=== PATIENT | male | born 1975 | race American Indian/Alaskan Native ===

== ENCOUNTER 2017-04-27 08:09 | Emergency (ER) | payer MEDICAID ==
[2017-04-27 08:29] VITALS: O2SAT 98
--- NOTE | 2017-04-27 09:39 | ED PDOC ---
HPI: Dental Pain/Injury Time Seen by Provider: 04/27/17 08:47 Chief Complaint (Nursing): Dental Pain History Per: Patient History/Exam Limitations: no limitations Onset/Duration Of Symptoms: Gradual (today) Current Symptoms Are (Timing): Still Present Severity: Mild Quality: Dull Additional History Per: Patient Additional Complaint(s): patient stated tooth ache to upper left side of the face since last nite, also noted left face is swollen.speech is clear. no f/c/n/v Past Medical History Reviewed: Historical Data, Nursing Documentation, Vital Signs Vital Signs: Last Vital Signs Temp 98.4 F 04/27/17 08:28 Pulse 73 04/27/17 08:28 Resp 20 04/27/17 08:28 BP 125/61 04/27/17 08:28 Pulse Ox 98 04/27/17 08:28 - Medical History PMH: No Chronic Diseases - Family History Family History: States: Unknown Family Hx - Living Arrangements Living Arrangements: With Family - Social History Current smoker - smoking cessation education provided: No - Home Medications Home Medications: Ambulatory Orders Medication Instructions Recorded Clindamycin [Cleocin] 1 tab PO QID #20 cap 12/29/15 Clindamycin [Cleocin] 300 mg PO QID 10 Days 04/27/17 - Allergies Allergies/Adverse Reactions: Allergies Allergy/AdvReac Type Severity Reaction Status Date / Time Penicillins Allergy RASH Verified 12/29/15 03:06 Review of Systems ROS Statement: Except As Marked, All Systems Reviewed And Found Negative Constitutional: Negative for: Fever, Chills ENT: Positive for: Mouth Swelling. Negative for: Throat Pain, Throat Swelling Cardiovascular: Negative for: Chest Pain, Palpitations Respiratory: Negative for: Cough, Shortness of Breath Gastrointestinal: Negative for: Nausea, Vomiting, Abdominal Pain Musculoskeletal: Negative for: Neck Pain Neurological: Negative for: Weakness, Numbness Physical Exam - Reviewed Nursing Documentation Reviewed: Yes Vital Signs Reviewed: Yes - Physical Exam Appears: Positive for: Well, No Acute Distress Head Exam: Positive for: ATRAUMATIC, NORMAL INSPECTION, NORMOCEPHALIC Eye Exam: Positive for: Normal appearance, EOMI, PERRL ENT: Positive for: Pharynx Is (clear,mmm), TM Is/Are (nml bl), Other (mild left maxillary facial swelling left 3rd molar noted with carries no abscess). Negative for: Sinus Pain/Drainage, Pharyngeal Erythema, Tonsillar Exudate, Tonsillar Swelling Neck: Positive for: Normal, Painless ROM, Supple. Negative for: Decreased ROM, Limited ROM, Trachea Midline Cardiovascular/Chest: Positive for: Regular Rate, Rhythm, Chest Non Tender. Negative for: Edema, Gallop Respiratory: Positive for: Normal Breath Sounds. Negative for: Decreased Breath Sounds, Accessory Muscle Use, Crackles, Rales, Rhonchi, Stridor, Wheezing Neurologic/Psych: Positive for: Alert, meat specialist II-XII, Oriented, Mood/Affect (calm) , Gait (steady). Negative for: Motor/Sensory Deficits, Aphasia, Facial Droop - ECG O2 Sat by Pulse Oximetry: 98 Pulse Ox Interpretation: Normal - Progress ED Course And Treament: advise antibiotics and close f/u with pts dentist. pt agree's with plan and leaves ambulatory and in good spirits. Re-evaluation Time: 09:47 Condition: Improved Disposition - Clinical Impression Clinical Impression: Dental caries - Patient ED Disposition Is Patient to be Admitted: No Counseled Patient/Family Regarding: Studies Performed, Diagnosis, Need For Followup, Rx Given - Disposition Referrals: [facility] [Outside] Disposition: Routine/Home Disposition Time: 09:35 Condition: GOOD Prescriptions: Clindamycin [Cleocin] 300 mg PO QID 10 Days Instructions: Dental Caries (ED)
[2017-04-27 09:52] VITALS: BP 128/78; PULSE 78; RESP 19; TEMP 97.5
== END 2017-04-27 09:52 | disposition home or self-care (01) ==
LOC: H.ER 08:09
DX: K02.9 Dental caries, unspecified (principal); Z88.0 Allergy status to penicillin

== ENCOUNTER 2017-08-25 23:55 | Emergency (ER) | payer MEDICAID, OTHER ==
[2017-08-26 00:09] VITALS: BP 134/80; PULSE 100; RESP 16; TEMP 99; O2SAT 97
[2017-08-26] MEDS ORDERED: Lidocaine 2% w Epi 1:100,000 Inj IJ ONE ×2 (01:44→02:02)
[2017-08-26] MEDS ORDERED: Fluorescein 1 mg Ophthalmic Strip ONE (02:38)
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
== END 2017-08-26 04:10 | disposition home or self-care (01) ==
LOC: H.ER 23:55
DX: S00.03XA Contusion of scalp, initial encounter (principal); S01.81XA Laceration without foreign body of other part of head, initial encounter; H11.32 Conjunctival hemorrhage, left eye; S02.32XA Fracture of orbital floor, left side, initial encounter for closed fracture; W10.9XXA Fall (on) (from) unspecified stairs and steps, initial encounter; Y92.89 Other specified places as the place of occurrence of the external cause; K04.7 Periapical abscess without sinus; Z88.0 Allergy status to penicillin; M50.20 Other cervical disc displacement, unspecified cervical region

== ENCOUNTER 2017-09-01 18:50 | Emergency (ER) | payer OTHER ==
[2017-09-01 18:57] VITALS: BP 127/72; PULSE 81; RESP 18; TEMP 98; O2SAT 97
--- NOTE | 2017-09-01 19:24 | ED PDOC ---
HPI: Wound Care - HPI Time Seen by Provider: 09/01/17 19:01 Chief Complaint (Nursing): Suture/Staple Removal Chief Complaint (Provider): Suture removal, abscess on forehead History Per: Patient Exam Limitations: no limitations Additional Complaint(s): Pt had sutures placed 1 week ago in left lateral eyebrow. Pt states he also has swelling on forehead which he states is getting larger and tender. Pt denies fever/chills. Past Medical History Reviewed: Historical Data, Nursing Documentation, Vital Signs Vital Signs: Last Vital Signs Temp 98 F 09/01/17 18:53 Pulse 81 09/01/17 18:53 Resp 18 09/01/17 18:53 BP 127/72 09/01/17 18:53 Pulse Ox 97 09/01/17 18:53 - Medical History PMH: No Chronic Diseases - Surgical History Surgical History: No Surg Hx - Family History Family History: States: Unknown Family Hx - Living Arrangements Living Arrangements: With Family - Social History Current smoker - smoking cessation education provided: No - Home Medications Home Medications: Ambulatory Orders Medication Instructions Recorded Clindamycin [Cleocin] 1 tab PO QID #20 cap 12/29/15 Clindamycin [Cleocin] 300 mg PO QID 10 Days cap 04/27/17 Clindamycin [Cleocin] 300 mg PO Q6 #28 cap 08/26/17 - Allergies Allergies/Adverse Reactions: Allergies Allergy/AdvReac Type Severity Reaction Status Date / Time Penicillins Allergy RASH Verified 12/29/15 03:06 Review of Systems ROS Statement: Except As Marked, All Systems Reviewed And Found Negative Constitutional: Negative for: Fever, Chills Skin: Positive for: Other (Swelling, abscess; suture removal) Physical Exam - Reviewed Nursing Documentation Reviewed: Yes Vital Signs Reviewed: Yes - Physical Exam Appears: Positive for: Well, Non-toxic, No Acute Distress Head Exam: Positive for: ATRAUMATIC, NORMAL INSPECTION, NORMOCEPHALIC Skin: Positive for: Warm. Negative for: Normal Color (Soft abscess, central forehead; well0-healing laceration of the left lateral eyebrow with 7 sutures intact, no surrounding erythema, no drainage) Eye Exam: Positive for: Normal appearance ENT: Positive for: Normal ENT Inspection Neck: Positive for: Normal, Painless ROM Respiratory: Negative for: Decreased Breath Sounds, Accessory Muscle Use, Respiratory Distress Back: Positive for: Normal Inspection Extremity: Positive for: Normal ROM Neurologic/Psych: Positive for: Alert, Oriented - ECG O2 Sat by Pulse Oximetry: 97 Medical Decision Making Medical Decision Making: Sutures easily removed with suture removal kit. Antibiotic ointment applied. Abscess cleaned with betadine, #18 harriett needled used for aspiration. Approx 1 cc of pus drained. Culture obtained. Pt currently on antibiotics. Disposition - Clinical Impression Clinical Impression: Removal of suture, Abscess of forehead - Patient ED Disposition Is Patient to be Admitted: No Counseled Patient/Family Regarding: Diagnosis, Need For Followup - Disposition Disposition: Routine/Home Disposition Time: 19:26 Condition: GOOD Instructions: Abscess (ED)
== END 2017-09-01 20:13 | disposition home or self-care (01) ==
LOC: H.ER 18:50
DX: Z48.02 Encounter for removal of sutures (principal); L02.01 Cutaneous abscess of face; Z88.0 Allergy status to penicillin

== ENCOUNTER 2018-10-18 01:58 | Emergency (ER) | payer SELFPAY ==
[2018-10-18 02:20] VITALS: BMI 26.6
[2018-10-18 02:25] VITALS: TEMP 97.9
[2018-10-18] MEDS ORDERED: Sodium Chloride 0.9% 1,000 ML IV ONE (02:47)
[2018-10-18 03:05] LABS: BASO # 0.2 K/uL (0.0-0.2); BASO % 1.3 % (0.0-2.0); EOS # 0.2 K/uL (0.0-0.7); EOS % 1.5 % (0.0-4.0); HEMOGLOBIN 13.2 g/dL (12.0-18.0); LYMPH # 4.8 K/uL (1.0-4.3); LYMPH % 39.5 % (20.0-40.0); MEAN CELL VOLUME 93.1 fl (80.0-94.0); MEAN CORPUSCULAR HEMOGLOBIN 30.4 pg (27.0-31.0); MEAN CORPUSCULAR HGB CONC 32.6 g/dL (33.0-37.0); MEAN PLATELET VOLUME 8.9 fl (7.2-11.7); MONO # 0.8 K/uL (0.0-0.8); MONO % 6.5 % (0.0-10.0); NEUT # 6.2 K/uL (1.8-7.0); NEUT % 51.2 % (50.0-75.0); NRBC % 0.2 % (0.0-0.0); RBC 4.34 Mil/uL (4.40-5.90); RED CELL DISTRIBUTION WIDTH 13.2 % (11.5-14.5); WHITE BLOOD COUNT 12.1 K/uL (4.8-10.8)
[2018-10-18 03:11] LABS: ALB/GLOB RATIO 1.3 (1.0-2.1); ALBUMIN 4.6 g/dL (3.5-5.0); ALT/SGPT 20 U/L (21-72); AST/SGOT 31 U/L (17-59); BLOOD UREA NITROGEN 17 mg/dl (9-20); CALCIUM 9.3 mg/dL (8.4-10.2); GFR NON-AFRICAN AMERICAN > 60
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
[2018-10-18 05:55] VITALS: BP 109/65; PULSE 65; RESP 16
[2018-10-20 18:26] VITALS: O2SAT 95
== END 2018-10-18 06:00 | disposition home or self-care (01) ==
LOC: H.ER 01:58
DX: F10.10 Alcohol abuse, uncomplicated (principal); R42 Dizziness and giddiness
CPT/HCPCS: 80053; 82948; 85025; 96374; 99283; G0480; J2765; J7030

== ENCOUNTER 2019-01-19 23:46 | Emergency (ER) | payer SELFPAY ==
[2019-01-19 23:47] VITALS: BMI 26.6
[2019-01-19 23:53] VITALS: TEMP 98
[2019-01-20 01:02] LABS: BASO # 0.1 K/uL (0.0-0.2); BASO % 0.9 % (0.0-2.0); EOS # 0.2 K/uL (0.0-0.7); EOS % 1.9 % (0.0-4.0); HEMOGLOBIN 13.2 g/dL (12.0-18.0); LYMPH # 2.1 K/uL (1.0-4.3); LYMPH % 25.2 % (20.0-40.0); MEAN CELL VOLUME 89.2 fl (80.0-94.0); MEAN CORPUSCULAR HEMOGLOBIN 30.2 pg (27.0-31.0); MEAN CORPUSCULAR HGB CONC 33.9 g/dL (33.0-37.0); MEAN PLATELET VOLUME 8.7 fl (7.2-11.7); MONO # 0.5 K/uL (0.0-0.8); MONO % 6.5 % (0.0-10.0); NEUT # 5.4 K/uL (1.8-7.0); NEUT % 65.5 % (50.0-75.0); RBC 4.37 Mil/uL (4.40-5.90); RED CELL DISTRIBUTION WIDTH 13.1 % (11.5-14.5); WHITE BLOOD COUNT 8.3 K/uL (4.8-10.8)
[2019-01-20 01:06] LABS: PROTHROMBIN TIME 11.5 Seconds (9.8-13.1)
[2019-01-20 01:09] LABS: PARTIAL THROMBOPLASTIN TIME 33.6 Seconds (25.6-37.1)
[2019-01-20 01:11] LABS: BLOOD UREA NITROGEN 15 mg/dl (9-20); CALCIUM 10.6 mg/dL (8.4-10.2); GFR NON-AFRICAN AMERICAN > 60
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
[2019-01-20 02:14] VITALS: BP 129/73; RESP 17
[2019-01-20 04:56] VITALS: PULSE 75; O2SAT 98
--- NOTE | 2019-01-20 08:56 | CARD ---
APPROVED REPORT Date of service: 01/19/2019 EKG Measurement Heart [id number] <Conclusion> Normal sinus rhythm Normal ECG
--- NOTE | 2019-01-20 09:18 | RAD ---
Date of service: 01/20/2019 HISTORY: Chest pain COMPARISON: No prior. TECHNIQUE: Chest PA and lateral FINDINGS: LINES AND TUBES: None. LUNG AND PLEURA: The lungs are well inflated and clear. No pleural effusion or pneumothorax. HEART AND MEDIASTINUM: The heart is not enlarged. No aortic atherosclerotic calcifications present. The hilar and mediastinal contours are within normal limits. SKELETAL STRUCTURES: The bony structures are within normal limits for the patient's age. VISUALIZED UPPER ABDOMEN: Normal. OTHER FINDINGS: None. IMPRESSION: No active pulmonary disease.
== END 2019-01-20 02:20 | disposition home or self-care (01) ==
LOC: H.ER 23:46
DX: R07.89 Other chest pain (principal); F10.10 Alcohol abuse, uncomplicated; F17.210 Nicotine dependence, cigarettes, uncomplicated; Z88.0 Allergy status to penicillin
CPT/HCPCS: 71046; 80048; 84484; 85025; 85610; 85730; 93005; 96374; 99283; G0480; J1885